=== PATIENT | female | born 2000 | race Hispanic/Latino ===

== ENCOUNTER 2023-11-30 05:26 | Inpatient (IN) | payer BC ==
[2023-11-30] MEDS ORDERED: Bicitra 30 ML UDCUP PO PRN (05:41)
[2023-11-30] MEDS ORDERED: Famotidine/PF 20 mg/2ml Vial SLOW IVP PRN (05:41)
[2023-11-30] MEDS ORDERED: Promethazine HCl 25 MG/ML VIAL IM PRN ×2 (05:41→05:51)
[2023-11-30] MEDS ORDERED: hydrALAZINE 20 MG/ML VIAL SLOW IVP PRN ×2 (05:41→17:13)
[2023-11-30] MEDS ORDERED: Ondansetron PF 4 MG/2 ML Vial IVP PRN ×4 (05:41→17:13)
[2023-11-30] MEDS ORDERED: Azithromycin 500 MG in Sodium Chloride 0.9% 250 ML 250 ML IVPB SCH (05:45)
[2023-11-30] MEDS ORDERED: Oxytocin 30 units/NS 500 ML 500 ML IV SCH ×2 (05:45→17:13)
[2023-11-30] MEDS ORDERED: CEFAZOLIN 2 GM in Sodium Chloride 0.9% 100 ML IVPB SCH (05:45)
[2023-11-30] MEDS ORDERED: Carboprost 250 MCG/ML AMP IM PRN (05:47)
[2023-11-30] MEDS ORDERED: Misoprostol 200 MCG TAB PR PRN (05:47)
[2023-11-30] MEDS ORDERED: Diphenoxylate HCl/Atropine Tablet PO PRN (05:47)
[2023-11-30] MEDS ORDERED: Methylergonovine 0.2 MG/ML VIAL IM PRN (05:47)
[2023-11-30] MEDS ORDERED: Acetaminophen 500 MG TAB PO PRN (05:47)
[2023-11-30 05:49] VITALS: BMI 26.9
[2023-11-30] MEDS ORDERED: fentaNYL 50 mcg/mL 1 mL Vial SLOW IVP PRN ×2 (05:51→18:00)
[2023-11-30] MEDS ORDERED: Moisturizing Cream (Eucerin) 113 GM JAR TOP PRN (05:51)
[2023-11-30] MEDS ORDERED: diphenhydrAMINE 50 MG/ML VIAL IVP PRN (05:51)
[2023-11-30] MEDS ORDERED: Naloxone HCl 0.4 mg/ml Vial IV PRN (05:51)
[2023-11-30] MEDS ORDERED: Morphine 4 MG/ML VIAL SLOW IVP PRN (05:51)
[2023-11-30] MEDS ORDERED: Meperidine HCl/PF 25 MG (1 mL) VIAL SLOW IVP PRN (05:51)
[2023-11-30] MEDS ORDERED: Naloxone HCl 0.4 mg/ml Vial IVP PRN ×2 (05:51)
[2023-11-30 05:59] LABS: Hematocrit 35.7 % (34.9-44.5); Hemoglobin 12.5 g/dL (12.0-15.5); Mean Corpuscular Hemoglobin 32.1 pg (27.0-33.0); Mean Corpuscular Volume 91.8 fL (81.6-98.3); Mean Platelet Volume 10.2 fL (7.4-10.4); Platelet Count 177 10x3/uL (150-450); RBC Distribution Width 12.9 % (11.5-14.5); Red Blood Cell (RBC) Count 3.89 10x6/uL (3.90-5.03); White Blood Cell (WBC) Count 8.5 10x3/uL (3.5-10.5)
[2023-11-30] MEDS ORDERED: Ketorolac Tromethamine 30 MG (1 mL) VIAL IVP SCH (06:00)
[2023-11-30] MEDS ORDERED: Communication Order-Pharmacy FS SCH (06:00)
[2023-11-30 06:31] LABS: Syphilis Antibody Nonreactive (Nonreactive); Syphilis Antibody Index 0.08 S/CO (<1.00 Non-Reactive)
[2023-11-30 06:32] LABS: Hep B Surf Ag - L&D Non-Reactive S/CO (NonReactive)
[2023-11-30] MEDS ORDERED: Bupivacaine PF 0.5% 30 ML VIAL ONE (08:00)
[2023-11-30] MEDS: Tranexamic Acid 1,000 MG/10 ML VIAL IVP PRN (08:20)
[2023-11-30] MEDS: Ketorolac Tromethamine 30 MG (1 mL) VIAL IVP PRN (10:52)
[2023-11-30] MEDS ORDERED: HYDROcodone/Acetaminophen 5/325 mg Tablet PO PRN (17:13)
[2023-11-30] MEDS ORDERED: Acetaminophen 325 MG TAB PO PRN (17:13)
[2023-11-30] MEDS ORDERED: Bisacodyl 10 MG SUPP PR PRN (17:13)
[2023-11-30] MEDS ORDERED: diphenhydrAMINE 25 MG CAP PO PRN (17:13)
[2023-11-30] MEDS ORDERED: Lanolin Ointment 7 GM TUBE TOP PRN (17:13)
[2023-11-30] MEDS: Ferrous Sulfate 325 MG TAB PO SCH (20:16)
[2023-11-30] MEDS: Docusate 100 MG CAP PO SCH ×2 (20:16→20:36)
[2023-11-30] MEDS: Azithromycin 500 MG VIAL ONE (20:17)
[2023-11-30] MEDS: Phytonadione Neonatal 1 MG/0.5 ML AMP ONE (20:17)
[2023-11-30] MEDS: CEFAZOLIN 2 GM VIAL ONE (20:17)
[2023-11-30] MEDS: Erythromycin Base 0.5% Oint 1 GM TUBE ONE (20:17)
[2023-11-30] MEDS: Ketorolac Tromethamine 30 MG (1 mL) VIAL IVP SCH (23:50)
[2023-12-01] MEDS: Ferrous Sulfate 325 MG TAB PO SCH (03:45)
[2023-12-01 04:29] LABS: Hematocrit 28.9 % (34.9-44.5); Hemoglobin 9.8 g/dL (12.0-15.5); Mean Corpuscular HGB CONC 33.9 g/dL (32.0-36.0); Mean Corpuscular Hemoglobin 31.7 pg (27.0-33.0); Mean Corpuscular Volume 93.5 fL (81.6-98.3); Mean Platelet Volume 10.2 fL (7.4-10.4); Platelet Count 131 10x3/uL (150-450); Red Blood Cell (RBC) Count 3.09 10x6/uL (3.90-5.03); White Blood Cell (WBC) Count 7.5 10x3/uL (3.5-10.5)
[2023-12-01] MEDS: Simethicone Chewable 80 MG TAB PO PRN (09:00)
[2023-12-01] MEDS: HYDROcodone/Acetaminophen 5/325 mg Tablet PO PRN (09:00)
[2023-12-01] MEDS: Boostrix 0.5 ML (Tdap) VIAL (>/=7 yrs of age) IM ONE (13:33)
[2023-12-01] MEDS: Ibuprofen 800 MG TAB PO SCH (13:48)
[2023-12-02 09:09] VITALS: BP 127/80; TEMP 97.6
== END 2023-12-02 13:35 | disposition home or self-care (01) | DRG 788 ==
LOC: CSHLD/OP 05:26 → CSHLD 06:00 → CSHPP 09:27
PROVIDERS: ADMIT Obstetrics & Gynecology; ATTEND Obstetrics & Gynecology
PROC: 10D00Z1 Extraction of Products of Conception, Low, Open Approach (ICD-10-PCS; principal; 2023-11-30)
PROC: 3E0234Z Introduction of Serum, Toxoid and Vaccine into Muscle, Percutaneous Approach (ICD-10-PCS; 2023-11-30)
DX: O42.02 Full-term premature rupture of membranes, onset of labor within 24 hours of rupture (principal); Z3A.38 38 weeks gestation of pregnancy; Z37.0 Single live birth; Z98.890 Other specified postprocedural states; Z79.899 Other long term (current) drug therapy; O26.893 Other specified pregnancy related conditions, third trimester; Z67.41 Type O blood, Rh negative
CPT/HCPCS: 36415; 51702; 85027; 85461; 86780; 86850; 86870; 86900; 86901; 87340; 90384; 96372; 99285; J0456; J0665; J1885; J2590; J3430